=== PATIENT | male | born 1995 | race Caucasian/White ===

== ENCOUNTER 2022-12-31 16:20 | Emergency (ER) | payer SELFPAY ==
[2022-12-31 16:24] VITALS: BP 158/89; PULSE 103; RESP 18; TEMP 37; O2SAT 97
--- NOTE | 2022-12-31 17:03 | ED.GENADUL_ITS ---
Discharge Plan Disposition Patient Disposition: Home Condition: Stable Discharge Details Clinical Impression: Laceration of hand, right Primary Care Provider: None,None ED Provider: Elsa Freitas Home Meds and New Rx's Prescriptions: New cephalexin 500 mg capsule 500 mg PO QID Qty: 16 0RF Discharge Instructions Instructions: Laceration (ED) Additional Instructions: cleanse wound with warm soapy water daily and rinse completely, pat dry gently and cover with dry dressing to protect. take antibiotic as prescribed even if you feel better. report signs of infection immediately, including fever redness, drainage or increased pain. Your tetanus has been updated. Recently I think is good to get the dispensed Keflex Referrals: [facility] [Provider Group] (return here in 7-10 days for suture removal) Discharge Data Discharge Date/Time-TO BE ENTERED AT DEPARTURE: 12/31/22 17:21 Medical Decision Making Tetanus updated bleeding is controlled wound is anesthetized using 1% lidocaine with good effect. Wound bed is examined and no foreign body or debris noted. His wound is washed at the sink using a surgical scrub brush and irrigated well with copious amounts of water. Wound edges approximate well. Wound is closed using 3 interrupted sutures with 4-0 Ethilon suture material. Superficial laceration to PIP joint is easily closed with surgical glue and Steri-Strip will apply a finger splint to help protect. Will provide Keflex 500 mg 4 times daily for 5 days for prophylaxis. Medical Records Medical records reviewed: Yes I reviewed the patient's medical records. HPI General Mode of arrival: ambulatory . Date/Time Provider Initiated Documentation: 12/31/22 16:24 . Limitations to Documentation: no limitations . Information obtained by: patient . HPI Narrative: This is a 27-year-old male patient in his usual state of health who while chopping wood lost control of the ax handle which braised the dorsal aspect of his right hand. He has a superficial laceration edges are clean. His last tetanus was when he was 16 years old. He has no other injury. He has full range of motion and sensation distally bleeding is controlled he did not provide any wound care prior to arrival Related Data Home Medications Medication Instructions Recorded Confirmed cephalexin 500 mg capsule 500 mg PO QID #16 caps 12/31/22 Previous Rx's Medication Instructions Recorded cephalexin 500 mg capsule 500 mg PO QID #16 caps 12/31/22 Allergies Allergy/AdvReac Type Severity Reaction Status Date / Time No Known Allergies Allergy Unverified 12/31/22 16:56 General Stated Complaint: Laceration HENRY: 4 Review of Systems All systems reviewed & are unremarkable except as noted in HPI and below PFSH All Active Problems (Updated 12/31/22 @ 17:12 by Elsa Freitas NP) Laceration of hand, right (Acute) Social History Smoking/Tobacco Use Status: Never Smoking risk assessment performed?: Yes Substance use type: does not use Do you feel safe at home: Yes Do you feel safe in your relationship?: Yes Exam Skin Trauma: laceration (Dorsal aspect of right hand approx 3 cm superficial, 1 cm over PIP 3rd dig) Course Vital Signs Vital signs: Vital Signs Temperature 37 C 12/31/22 16:24 Pulse 103 H 12/31/22 16:24 Respiratory Rate 18 12/31/22 16:24 Blood Pressure 158/89 H 12/31/22 16:24 Pulse Oximetry 97 12/31/22 16:24 Temperature 37 C 12/31/22 16:24 Temperature Source Temporal Artery Scan 12/31/22 16:24 Pulse 103 H 12/31/22 16:24 Respiratory Rate 18 12/31/22 16:24 Respiratory Effort Normal 12/31/22 16:28 Blood Pressure 158/89 H 12/31/22 16:24 Blood Pressure Position Sitting 12/31/22 16:24 Pulse Oximetry 97 12/31/22 16:24 Oxygen Delivery Method Room Air 12/31/22 16:24 Oxygen Flow Rate 0 12/31/22 16:24 Pain Level 1 12/31/22 16:24 Procedures Laceration Laceration 1: Site: hand (Dorsal aspect superficial between second and third digits no bleeding) Side (If applicable): right Size (cm): 3 Description: linear and clean Depth: simple, single layer Local Anesthetic: Lidocaine 1% Amount of anesthesia used (mL): 2 Pre-repair: wound explored, irrigated extensively and deep structures intact (Not visualized as wound is superficial) Skin layer closed with: nylon Size (cm): 3-0 Number of sutures: 3 Technique: simple, interrupted PAWSS Have you Been Recently Intoxicated or Drunk Within the Last 30 days?: No Have you Ever Experienced Previous Episodes of Alcohol Withdrawal?: No Have you ever Experienced Withdrawal Seizures?: No Have you ever Experienced Delirium Tremens(DT)s?: No Have you ever undergone Alcohol Rehabilitation Treatment (i.e, inpt ot outpatient treatment programs)?: No Have you ever Experienced Blackouts?: No Have you ever Combined Alcohol with other Downers within the last 90 days?: No Have you ever Combined Alcohol with any other Substance of Abuse during the last 90 days?: No Positive Blood Alcohol level on Presentation? [PCS.BAL]: Unable to Obtain Evidence of Increased Autonomic Activity (i.e. HR>120, tremor, sweating, agitation, nausea)?: Unable to Obtain Result: 0
[2022-12-31] MEDS: Cephalexin 500 MG CAP, 4 CAPS/BTL PO (17:18)
== END 2022-12-31 17:21 | disposition home or self-care (01) ==
LOC: ER 17:28
PROVIDERS: Emergency Provider Nurse Practitioner Acute Care
DX: M79.641 Pain in right hand (principal); S61.411A Laceration without foreign body of right hand, initial encounter; W27.8XXA Contact with other nonpowered hand tool, initial encounter
CPT/HCPCS: 12002; 90471

== ENCOUNTER 2023-01-08 16:48 | Emergency (ER) | payer SELFPAY ==
[2023-01-08 16:49] VITALS: BP 135/90; PULSE 109; RESP 17; TEMP 37; O2SAT 98
--- NOTE | 2023-01-08 17:04 | ED.GENADUL_ITS ---
Discharge Plan Disposition Patient Disposition: Home Discharge Details Clinical Impression: Encounter for removal of sutures ED Provider: Rohit Castillo Home Meds and New Rx's Prescriptions: No Action cephalexin 500 mg capsule 500 mg PO QID Qty: 16 0RF Discharge Instructions Additional Instructions: Continue to monitor for signs of infection and return immediately if these o ccur. Referrals: Primary Care Provider [Outside] (As needed) Discharge Data Discharge Date/Time-TO BE ENTERED AT DEPARTURE: 01/08/23 17:12 Medical Decision Making 3 sutures were removed with no obvious dehiscence but still some slight opening of the wound. Patient did report that he would need them out today given that he will be out of town going on a trip and understands there was increased potential for scarring. Steri-Strips were placed to help continue wound healing. After discussion of diagnosis and plan of care patient has no further needs, questions, or concerns and states clear understanding to return to the emergency department for any worsening symptoms. This documentation was generated using [employer] dictation system, please disregard any oddities of phrase or misspellings. HPI General Mode of arrival: ambulatory . Date/Time Provider Initiated Documentation: 01/08/23 16:52 . Limitations to Documentation: no limitations . Information obtained by: patient, RN notes reviewed and old records reviewed . History of Present Illness 27 year old M presents to the emergency department with the chief complaint of Encounter for suture removal, Patient notes no other symptoms.. Related Data Home Medications Medication Instructions Recorded Confirmed cephalexin 500 mg capsule 500 mg PO QID #16 caps 12/31/22 Previous Rx's Medication Instructions Recorded cephalexin 500 mg capsule 500 mg PO QID #16 caps 12/31/22 Allergies Allergy/AdvReac Type Severity Reaction Status Date / Time No Known Allergies Allergy Unverified 12/31/22 16:56 General Stated Complaint: SutureRem HENRY: 4 Review of Systems Constitutional Constitutional: Denies chills and Denies fever(s) Musculoskeletal Musculoskeletal: Denies arthralgias Integumentary/Breasts Skin/Breast: Denies rash and Denies skin swelling PFSH All Active Problems Encounter for removal of sutures (Acute) Laceration of hand, right (Acute) Social History Smoking/Tobacco Use Status: Never Smoking risk assessment performed?: Yes Substance use type: does not use Do you feel safe at home: Yes Do you feel safe in your relationship?: Yes Exam Const General: cooperative, comfortable and no acute distress Orientation: alert, awake and oriented x3 Skin Rashes: no rashes Trauma: laceration (healing well laceration without erythema, purulence, or dehiscence.) Course Vital Signs Vital signs: Vital Signs Temperature 37.0 C 01/08/23 16:49 Pulse 109 H 01/08/23 16:49 Respiratory Rate 17 01/08/23 16:49 Blood Pressure 135/90 01/08/23 16:49 Pulse Oximetry 98 01/08/23 16:49 Temperature 37.0 C 01/08/23 16:49 Temperature Source Temporal Artery Scan 01/08/23 16:49 Pulse 109 H 01/08/23 16:49 Respiratory Rate 17 01/08/23 16:49 Blood Pressure 135/90 01/08/23 16:49 Blood Pressure Position Supine 01/08/23 16:49 Pulse Oximetry 98 01/08/23 16:49 Oxygen Delivery Method Room Air 01/08/23 16:49 Oxygen Flow Rate 0 01/08/23 16:49 Pain Level 0 01/08/23 16:49
== END 2023-01-08 17:12 | disposition home or self-care (01) ==
PROVIDERS: Emergency Provider Nurse Practitioner Family
DX: S61.411D Laceration without foreign body of right hand, subsequent encounter (principal); X58.XXXD Exposure to other specified factors, subsequent encounter